=== PATIENT | male | born 1995 | race Two or more races ===

== ENCOUNTER 2016-07-13 21:31 | Emergency (ER) | payer SELFPAY ==
[2016-07-14] MEDS ORDERED: IBUPROFEN 800 MG TABLET ONE (00:45)
--- NOTE | 2016-07-14 07:58 | RAD ---
HISTORY: Slipped and fell on ice yesterday. Initial encounter. COMPARISON: None Findings: AP and lateral views of the lumbar spine with AP spot film of the lumbo-sacral junction are obtained. The development and bony structures are normal. There is no fracture, dislocation or destructive lesion. There may be some slight retrolisthesis of L5 on S1. Otherwise alignment is intact. The disk spaces and vertebral body heights are well-preserved. The sacrum and sacroiliac joints are normal. IMPRESSION: No fracture or dislocation.
== END 2016-07-14 01:15 | disposition home or self-care (01) ==
LOC: ED 21:31
DX: S39.012A Strain of muscle, fascia and tendon of lower back, initial encounter (principal); L05.91 Pilonidal cyst without abscess; W00.0XXA Fall on same level due to ice and snow, initial encounter; Y93.01 Activity, walking, marching and hiking
CPT/HCPCS: 72100; 99283 ×2; A9270